=== PATIENT | male | born 1995 | race Caucasian/White ===

== ENCOUNTER 2024-03-23 23:00 | Emergency (ER) | payer OTHER ==
[~2024-03-23] VITALS: Ht 177.8 cm; Wt 81.6 kg
[2024-03-23] MEDS ORDERED: diphenhydrAMINE 50 MG/1 ML VIAL ONE (23:38)
[2024-03-23] MEDS ORDERED: METOCLOPRAMIDE HCL 10 MG/2 ML VIAL ONE (23:38)
[2024-03-23] MEDS: METOCLOPRAMIDE HCL 10 MG/2 ML VIAL IV ONE (23:40)
[2024-03-23] MEDS: IV NORMAL SALINE 1000 ML BAG IV ONE (23:40)
[2024-03-23] MEDS: diphenhydrAMINE 50 MG/1 ML VIAL IV ONE (23:40)
[2024-03-23 23:47] LABS: ALANINE AMINOTRANSFERASE 25 U/L (16-63); ALKALINE PHOSPHATASE 114 U/L (50-136); ASPARTATE AMINOTRANSFERASE 10 U/L (15-37); BILIRUBIN,DIRECT 0.2 mg/dL (0.0-0.2); BILIRUBIN,TOTAL 0.7 mg/dL (0.2-1.0); CALCIUM 9.5 mg/dL (8.5-10.1); CARBON DIOXIDE 24 mmol/L (21-32); CHLORIDE 95 mmol/L (98-107); CREATININE 0.8 mg/dL (0.6-1.3); GLUCOSE 273 mg/dL (74-106); POTASSIUM 3.5 mmol/L (3.5-5.1); SODIUM SERUM 135 mmol/L (136-145); TOTAL PROTEIN, SERUM 8.2 g/dL (6.4-8.2); UREA NITROGEN, BLOOD 19 mg/dL (7-18)
[2024-03-23] MEDS ORDERED: INSU100I26 SQ (23:48)
[2024-03-23] MEDS ORDERED: BUPR1FIL3 SL (23:48)
[2024-03-23] MEDS ORDERED: INSU200I SQ (23:48)
[2024-03-23 23:54] LABS: *BILIRUBIN,URIN NEGATIVE (NEGATIVE); *BLOOD, URINE NEGATIVE (NEGATIVE); *CLARITY,URINE CLEAR (CLEAR); *COLOR,URINE YELLOW (YELLOW); *KETONES,URINE 4+ (NEGATIVE); *PROTEIN,URINE NEGATIVE (NEGATIVE); *UROBILINOGEN,URINE 0.2 E.U./dl (NORMAL); LEUKOCYTE ESTERASE ,URINE NEGATIVE (NEGATIVE); NITRITE, URINE NEGATIVE (NEGATIVE); PH,URINE 5.5 (5.0-8.0)
[2024-03-23 23:59] LABS: *AMPHETAMINE, URINE NEGATIVE (NEGATIVE); *BARBITURATE, URINE NEGATIVE (NEGATIVE); *BENZODIAZEPINE, URINE NEGATIVE (NEGATIVE); *CANNABINOID, URINE NEGATIVE (NEGATIVE); *COCCAINE, URINE NEGATIVE (NEGATIVE); *OPIATE, URINE NEGATIVE (NEGATIVE); *PHENCYCLIDINE SCREEN,URINE NEGATIVE (NEGATIVE)
[2024-03-24] LABS: ETHANOL < 3 MG/DL (0-10)
[2024-03-24 00:12] LABS: UGLUCOSE 2+ (NEGATIVE)
[2024-03-24 00:39] LABS: BASOPHILS % (AUTO) 0.2 % (0.0-2.0); HEMATOCRIT 49.1 % (36.7-47.1); LYMPHOCYTES # (AUTO) 1.4 K/uL (0.8-4.8); LYMPHOCYTES % (AUTO) 13.5 % (20.5-51.5); MEAN CORPUSCULAR HEMOGLOBIN 30.3 uug (23.8-33.4); MEAN CORPUSCULAR HGB CONC 35 g/dL (32.5-36.3); MEAN CORPUSCULAR VOLUME 87.9 fL (73.0-96.2); MONOCYTES # (AUTO) 0.3 K/uL (0.1-1.30); MONOCYTES % (AUTO) 3.4 % (0.0-11.0); NEUTROPHILS # (AUTO) 8.3 K/uL (1.8-8.9); NEUTROPHILS % (AUTO) 82.9 % (38.5-71.5); PLATELET COUNT (AUTO) 383 K/uL (152-348); RED BLOOD CELL COUNT(AUTO) 5.59 MIL/uL (4.06-5.63); RED CELL DISTRIBUTION WIDTH 13.6 % (12.1-16.2); WHITE BLOOD COUNT (AUTO) 10.1 K/uL (3.6-10.2)
[2024-03-24 00:42] LABS: DIFFERENTIAL COMMENT 1
[2024-03-24 00:44] LABS: FENTANYL, URINE POSITIVE (NEGATIVE)
[2024-03-24] MEDS: IV NORMAL SALINE 1000 ML BAG IV ONE (01:30)
[2024-03-24] MEDS ORDERED: HALOPERIDOL LACTATE 5 MG/1 ML VIAL ONE (02:21)
[2024-03-24] MEDS ORDERED: ONDANSETRON 4 MG/2 ML VIAL ONE (02:21)
[2024-03-24] MEDS: HALOPERIDOL LACTATE 5 MG/1 ML VIAL IV ONE (02:26)
[2024-03-24] MEDS: ONDANSETRON 4 MG/2 ML VIAL IV ONE (02:26)
[2024-03-24] MEDS ORDERED: diphenhydrAMINE 50 MG/1 ML VIAL ONE (05:09)
[2024-03-24] MEDS ORDERED: METOCLOPRAMIDE HCL 10 MG/2 ML VIAL ONE (05:09)
[2024-03-24] MEDS: METOCLOPRAMIDE HCL 10 MG/2 ML VIAL IV ONE (05:10)
[2024-03-24] MEDS: diphenhydrAMINE 50 MG/1 ML VIAL IV ONE (05:10)
[2024-03-24] MEDS ORDERED: DIPH25TA62 PO (06:25)
[2024-03-24] MEDS ORDERED: METO5TAB87 PO (06:25)
[2024-03-24] MEDS ORDERED: ONDANSETRON ODT 4 MG TAB.RAPDIS ONE (07:17)
[2024-03-24] MEDS: ONDANSETRON ODT 4 MG TAB.RAPDIS SL ONE (07:21)
[2024-03-24 08:32] VITALS: BP 118/65; TEMP 97.7; O2SAT 100
[2024-03-24 13:53] LABS: BACTERIA,URINE NONE SEEN /HPF (NONE SEEN); RBC,URINE NONE SEEN /HPF (0-3); SQUAMOUS EPITHELIAL CELL,UR FEW /HPF (NONE SEEN); WBC,URINE 0-3 /HPF (0-3)
== END 2024-03-24 08:25 | disposition home or self-care (01) ==
LOC: ER 23:02
DX: R11.2 Nausea with vomiting, unspecified (principal); T40.415A Adverse effect of fentanyl or fentanyl analogs, initial encounter; F11.90 Opioid use, unspecified, uncomplicated; E11.9 Type 2 diabetes mellitus without complications; Z79.4 Long term (current) use of insulin; Z79.899 Other long term (current) drug therapy; Z20.822 Contact with and (suspected) exposure to COVID-19; Y92.89 Other specified places as the place of occurrence of the external cause
CPT/HCPCS: 36415; 85025; A4606; A4663; G0480; J1200; J1630; J2405; J2765; J7040; Q0162